=== PATIENT | male | born 1970 | race Caucasian/White ===

== ENCOUNTER 2016-12-02 07:23 | Day surgery (SDC) | payer BC ==
[~2016-12-02] VITALS: Ht 177.8 cm; Wt 74.1 kg
[2016-12-02] VITALS (8 sets, daily range): BP systolic 129–157; BP diastolic 79–99; PULSE 61–80; RESP 16–20; TEMP 97.5–98; O2SAT 95–99
[~2016-12-02 07:23] MED LIST: ASPI325T PO; EZET10 PO; KLON2TAB PO; NITR0.4S SL; ROSU5 PO; SENS60TA PO; SEVE800 PO; TOPR25TA2 PO
[2016-12-02] MEDS ORDERED: SODIUM CHLOR 0.9% 1000 ML IV SCH (07:45)
[2016-12-02] MEDS ORDERED: PRED5TAB PO (08:35)
[2016-12-02] MEDS ORDERED: ASPI325T PO (08:35)
[2016-12-02] MEDS ORDERED: PIOG15TA5 PO (08:35)
[2016-12-02] MEDS ORDERED: [UNRECOGNIZED DRUG - OTHER] SQ (08:35)
[2016-12-02] MEDS ORDERED: METO50TA PO (08:35)
[2016-12-02] MEDS ORDERED: MAGN1TAB PO (08:35)
[2016-12-02] MEDS ORDERED: PIOG30TA4 PO (08:35)
[2016-12-02] MEDS ORDERED: MYCO500 PO (08:35)
[2016-12-02] MEDS ORDERED: METO5TAB3 PO (08:35)
[2016-12-02] MEDS ORDERED: GLYB1TAB94 PO (08:35)
[2016-12-02] MEDS ORDERED: TERA2CAP3 PO (08:35)
[2016-12-02] MEDS ORDERED: LOSA50TA PO (08:35)
[2016-12-02] MEDS ORDERED: SODI325T PO (08:35)
[2016-12-02] MEDS ORDERED: PRAV80TA2 PO (08:35)
[2016-12-02] MEDS ORDERED: TACR1 PO (08:35)
[2016-12-02] MEDS ORDERED: LIDOCAINE 1%/EPINEPHrine 1:100,000 SOLN 20 ML VIAL ONE (10:54)
[2016-12-02] MEDS ORDERED: MIDAZOLAM HCL 2 MG/2 ML VIAL ONE (12:29)
[2016-12-02] MEDS ORDERED: PROPOFOL 200 MG/20 ML AMP IV ONE (12:42)
[2016-12-02] MEDS ORDERED: ONDANSETRON HCL 4 MG/2 ML VIAL IV PUSH ONE (12:42)
[2016-12-02] MEDS ORDERED: oxyCODONE/ACETAMINOPHEN 5 MG/325 MG TAB PO ONE (13:00)
--- NOTE | 2016-12-02 14:10 | RADRPT ---
EXAM DATE/TIME: 12/02/2016 11:35 [place] COMPARISON: No previous studies available for comparison. INDICATIONS : Right renal transplant biopsy BIOPSY SITE: Right transplant kidney DEVICE(S): 1.) 18 Fr BioPince needle 2.) 16 gauge Gaona blunt needle introducer MEDICAL HISTORY : Hypertension. Diabetes mellitus type 1. SURGICAL HISTORY : renal transplant ENCOUNTER: Initial ACUITY: 1 day PAIN SCORE: 0/10 LOCATION: Right lower quadrant A total of three core specimen(s) were obtained and sent to the laboratory for pathologic evaluation. PROCEDURE: 1. CT guided renal biopsy. Prior to the procedure informed consent was obtained. Any appropriate prior imaging studies were rev iewed. The site was prepped in a sterile fashion. Full sterile technique was used, including cap, mask, meri rile gloves and gown and a large sterile sheet. Hand hygiene and 2% chlorhexidine and/or betadine/al cohol prep was utilized per protocol for cutaneous antisepsis. The skin and subcutaneous tissues wer e infiltrated with local anesthetic solution. With CT guidance the right pelvic kidney transplant was localized. Biopsy was performed using the pre scribed needle as above. Adequate hemostasis was obtained with compression at the puncture site. Follow-up CT scan reveals no hemorrhage or acute finding. The patient tolerated the procedure well and there were no complications. The patient was returned to the Radiology Outpatient Unit in stable condition. CONCLUSION: Uncomplicated CT guided biopsy of the right pelvis transplant kidney. Олег Moscoso MD on December 02, 2016 at 14:04 Board Certified Radiologist. This report was verified electronically.
--- NOTE | 2016-12-02 18:58 | EKG ---
Date Performed: 12/02/2016 Time Performed: 08:24:45 PTAGE: 46 years EKG: Sinus rhythm NONSPECIFIC T-WAVE ABNORMALITY BORDERLINE ECG NO PREVIOUS TRACING DOCTOR: John Montejo Interpretating Date/Time 12/02/2016 18:58:00
== END 2016-12-02 15:50 | disposition home or self-care (01) ==
LOC: HRAD 07:23 → HRIP 07:24 → EDSTATUS 10:45 → HRAD 15:50
PROVIDERS: ATTEND Internal Medicine Nephrology
DX: N17.9 Acute kidney failure, unspecified (principal); N26.9 Renal sclerosis, unspecified; I10 Essential (primary) hypertension; E10.9 Type 1 diabetes mellitus without complications; E78.5 Hyperlipidemia, unspecified; Z79.4 Long term (current) use of insulin; Z94.0 Kidney transplant status
CPT/HCPCS: 50200; 77012; 93005; J2250; J7030; J2405